=== PATIENT | male | born 1955 | race Caucasian/White ===

== ENCOUNTER → 2016-07-08 | Outpatient (CLI) | payer OTHER ==
[~2016-07-08] MED LIST: ASPI1TAB24 PO; ATEN25TA PO; BENA25CA4 PO; CELE-19 PO; GABA300C3 PO; LISI10TA4 PO; LOVA10TA PO; METF500T PO; OXYB5TA PO; [UNRECOGNIZED DRUG - CODE] PO
[2016-07-08 11:36] LABS: CALCIUM LEVEL 8.9 MG/DL (8.8-10.2); CREATININE FOR GFR 1.49 MG/DL (0.70-1.30); GLOMERULAR FILTRATION RATE 50.9 (>49); POTASSIUM SERUM 4.6 MEQ/L (3.5-5.1)
--- NOTE | 2016-07-10 00:43 | ECGEPIP ---
Stationary ECG Study [facility] Test Date: 2016-07-08 Pat Name: LUIS DANIEL AMARAL Department: Room: - Gender: M Waterproofer: BRIDGET : 1955 Requested By: Luis Daniel Sherman Order Number: [id number] Reading MD: Raul Vazquez Measurements Intervals Joseph Rate: 56 P: 71 VA: 165 QRS: -26 QRSD: 91 T: 9 QT: 429 QTc: 417 Interpretive Statements SINUS BRADYCARDIA LEFT AXIS DEVIATION Left anterior tyler-block No prior tracing Electronically Signed On 07-10-2016 0:43:10 EST by Raul Vazquez
== END ==
LOC: M LAB 10:16
PROVIDERS: ATTEND Orthopaedic Surgery
DX: E11.9 Type 2 diabetes mellitus without complications (principal)

== ENCOUNTER 2016-07-21 06:19 | Inpatient (IN) | payer OTHER ==
--- NOTE | 2016-07-13 12:36 | HPE ---
DATE OF ADMISSION: 07/21/2016 ATTENDING PHYSICIAN: Dr. Rod CHIEF COMPLAINT: Back pain, pain radiating down his right leg. HISTORY: This is a pleasant 60-year-old male patient with ongoing back pain from a work-related injury since 03/13/1989. He has continued to struggle with pain in his back. It goes down his right leg. It effects his activities of daily living and his rest. He has pain down his right leg if he sits too long, stands too long, he has to make frequent position changes. He has elected for surgery for his continued symptoms. He has consented for a right sided L5-S1 unilateral laminectomy and facetectomy as well as posterior fusion in situ L5-S1 using iliac crest graft. His MRI and x-ray consistent with foraminal stenosis, degenerative disc disease and hypertrophic changes to the facet joints. Medical optimization pending with Dr. Purcell. ALLERGIES: LIPITOR that causes muscle aches and LEVAQUIN that causes him to be nauseous and vomit. CURRENT MEDICATIONS INCLUDE: - Percocet 5/325 one to two tablets as needed for pain, that is prescribed for him for postoperative pain - gabapentin 300 mg one tablet three times a day - Celebrex 200 mg one tablet once a day - Ultram ER 100 mg one tablet as needed - atenolol 25 mg one tablet once per day - aspirin 81 mg one tablet once per day, discontinue that 5 days prior to surgery - metformin 500 mg one tablet twice a day - Benadryl 25 mg one tablet at nighttime as needed - oxybutynin he believes 5 mg as needed - lisinopril 10 mg one tablet once per day MEDICAL HISTORY INCLUDES: Hypertension. Elevated cholesterol. Lung difficulties. Non-insulin dependent diabetes. Lumbar degenerative disc disease. Low back pain. Right lower extremity radiculopathy. PAST SURGERIES INCLUDES: Right shoulder surgery and skin grafting of his lower extremities. FAMILY HISTORY: Noncontributory. SOCIAL HISTORY: He is a nonsmoker. He does not use alcohol. He is retired. REVIEW OF SYSTEMS: Denies fever or chills. Denies chest pain, shortness of breath or cough. Denies difficulty breathing. Denies abdominal pain. Denies nausea or vomiting. Notes persistent pain in his back down his right leg with weightbearing activities and activities of daily living. Denies change in his bowel or bladder habits. Denies loss of bowel or bladder control. Exam today reveals a well-nourished, well-developed alert male patient. He ambulates with a slow gait but it is not wide-based. He does not use assistive devices for ambulation today. There is some tenderness along the base of the lumbar spine without step-offs or deviations. Deep tendon reflexes are trace at the knees, absent at the ankles. Straight leg raise testing is irritable on the right, negative on the left. The skin around the back is intact. No erythema, edema or ecchymosis. His neck is supple without adenopathy or JVD. Lungs are clear to auscultation without rales or wheeze. Heart: Regular rate and rhythm. Abdomen: Bowel sounds are present. Height 5 feet 11, weight 233 pounds, temperature 97.6, blood pressure 140/98, pulse 64, respirations 12. LABORATORY DATA: Hemoglobin 14.6. IMPRESSION: Lumbar spinal stenosis. Lumbar degenerative disc disease. Right lower extremity radiculopathy, it is symptomatic. PLAN: L5-S1 unilateral laminectomy and facetectomy and posterior fusion in situ L5-S1.
[~2016-07-21] VITALS: Ht 182.9 cm; Wt 105.0 kg
[2016-07-21] MEDS ORDERED: PERCOCET 5MG/325MG TAB PO ONE (06:30)
[2016-07-21] MEDS ORDERED: LR 1,000 ML IV SCH ×2 (06:30→12:00)
[2016-07-21] MEDS ORDERED: D5W/LR 1,000 ML IV SCH (06:30)
[2016-07-21] MEDS ORDERED: PREGABALIN 75 MG CAP(LYRICA) PO ONE (06:30)
[2016-07-21] MEDS ORDERED: CelecoXIB (CeleBREX) 100 MG CAP PO ONE (06:30)
[2016-07-21] MEDS ORDERED: BUPIVACAINE/EPIN 0.25% 30 ML VIAL As Ordered ONE (08:09)
[2016-07-21] MEDS ORDERED: THROMBIN SOLN 20,000 UNITS KIT As Ordered ONE (08:09)
[2016-07-21] MEDS ORDERED: VANCOMYCIN HCL 500 MG/10 ML VIAL (J3370) As Ordered ONE (08:09)
[2016-07-21] MEDS ORDERED: BACITRACIN PWD 50,000 UNITS VIAL As Ordered ONE (08:10)
[2016-07-21] MEDS ORDERED: ROCURONIUM BROMIDE 50 MG/5 ML VIAL As Ordered ONE ×2 (08:11→09:50)
[2016-07-21] MEDS ORDERED: ONDANSETRON 4MG/2ML VIAL (J2405) As Ordered ONE (08:11)
[2016-07-21] MEDS ORDERED: LIDOCAINE 2% INJ 100 MG/5 ML SDV (FOR ANES.) As Ordered ONE (08:11)
[2016-07-21] MEDS ORDERED: PROPOFOL 200 MG/20 ML VIAL As Ordered ONE (08:11)
[2016-07-21] MEDS ORDERED: MIDAZOLAM INJ 2 MG/2 ML VIAL (J2250) As Ordered ONE (08:13)
[2016-07-21] MEDS ORDERED: fentaNYL 100 MCG/2 ML INJECTION (J3010) As Ordered ONE ×2 (08:13→09:52)
[2016-07-21] MEDS ORDERED: ceFAZolin 2 GM/D5W 50 ML IV BAG (J0690) As Ordered ONE (08:18)
[2016-07-21] MEDS ORDERED: GABAPENTIN 300 MG CAP PO SCH (09:00)
[2016-07-21] MEDS ORDERED: ePHEDrine SULFATE 25 MG/5 ML(5MG/ML) SYRINGE As Ordered ONE (09:01)
[2016-07-21] MEDS ORDERED: THROMBIN SOLN 20,000 UNITS KIT XX ONE (09:56)
[2016-07-21] MEDS ORDERED: BACITRACIN PWD 50,000 UNITS VIAL IR ONE (09:56)
[2016-07-21] MEDS ORDERED: VANCOMYCIN 500 MG/10 ML XX ONE (09:56)
[2016-07-21] MEDS ORDERED: BACITRACIN PWD 50,000 UNITS VIAL XX ONE (09:56)
[2016-07-21] MEDS ORDERED: BUPIVACAINE/EPIN 0.25% 30 ML VIAL XX ONE (09:56)
[2016-07-21] MEDS ORDERED: GLYCOPYRROLATE INJ 0.2 MG/ML 2 ML VIAL As Ordered ONE ×2 (10:57→10:58)
[2016-07-21] MEDS ORDERED: NEOSTIGMINE 1MG/ML 5 ML SYRINGE (J2710) As Ordered ONE (10:57)
[2016-07-21] MEDS ORDERED: dexameTHASONE 4 MG/ML 1ML VIAL (J1100) As Ordered ONE (11:09)
[2016-07-21] MEDS ORDERED: HYDROmorphone HCL 2 MG/ML 1ML VIAL (J1170) As Ordered ONE (11:16)
[2016-07-21] MEDS ORDERED: PROMETHAZINE INJ 25 MG/ML VIAL (J2550) IV PRN (11:45)
[2016-07-21] MEDS ORDERED: MEPERIDINE INJ 25 MG/ML VIAL (J2175) IV PRN (12:00)
[2016-07-21] MEDS ORDERED: fentaNYL 100 MCG/2 ML INJECTION (J3010) IV PRN (12:00)
[2016-07-21] MEDS ORDERED: METOCLOPRAMIDE INJ 10MG/2ML VIAL (J2765) IV PRN (12:00)
[2016-07-21] MEDS ORDERED: PERCOCET 5MG/325MG TAB PO PRN ×2 (12:00)
[2016-07-21] MEDS ORDERED: ONDANSETRON 4MG/2ML VIAL (J2405) IV PRN (12:00)
[2016-07-21] MEDS: HumaLOG INSULIN (NovoLOG) PER UNIT SC SCH ×2 (12:05→17:18)
[2016-07-21] MEDS ORDERED: HumaLOG INSULIN (NovoLOG) PER UNIT SC ONE (12:15)
--- NOTE | 2016-07-21 12:40 | REP ---
Partial lumbar spine series: Single cross-table lateral view. History: Facet arthropathy. Radiculopathy. Findings: A cross-table lateral portably obtained radiograph of the lumbar spine time-stamped at 9:38 a.m. demonstrates an intraoperative probe at the dorsal aspect of the spinal canal at the L5 vertebral body level. Signed by Jason Blandon MD 07/21/2016 04:31 P
[2016-07-21 13:30] VITALS: BP 143/78
--- NOTE | 2016-07-21 14:21 | RO ---
DATE OF PROCEDURE: 07/21/2016 PREPROCEDURE DIAGNOSES: Right lower extremity radiculopathy, facet arthropathy of L5-S1, spinal stenosis L5-S1 with instability. POSTPROCEDURE DIAGNOSES: Right lower extremity radiculopathy, facet arthropathy of L5-S1, spinal stenosis L5-S1 with instability. PROCEDURE PERFORMED: Right L5-S1 laminotomy, partial facetectomy, posterior L5-S1 intertransverse fusion in situ, harvest and placement of local autograft for spine surgery, harvest and placement of iliac crest autograft for spine surgery. SURGEON: Luis Daniel Rod MD LEAD MILITARY ANALYST: BRIAN Castaneda ANESTHESIA: General. ESTIMATED BLOOD LOSS: Less than 100 mL, replaced with crystalloid COMPLICATIONS: None. INDICATIONS: Pain radiating to the right lower extremity unresponsive to conservative management. MRI and plain film evidence of quite significant facet arthropathy at L5-S1, especially on the right side with right lateral recess facette subluxation and spinal stenosis. Consent reviewed in detail, including a isabela discussion of the pathology involved, the procedure proposed, alternatives, including doing nothing and risks, including, but not limited to, pain, failure, incomplete relief, need for more surgery, bleeding, blood loss, nerve injury and other problems. The patient wants to proceed. DESCRIPTION OF PROCEDURE: Identified in the holding area. Site and side verified, brought to the operating room. General endotracheal anesthesia was administered. He was positioned on the Walter frame in the prone position for exposure of the lumbar spine, knees slightly flexed. Next, I utilized 3.5 loupe magnification for the first portion of procedure. I stood on the patient's right and Mr. Stone on the patient's left so that we could alternate positions through the procedure. Next, the incision was outlined with a marking pen and Mr. Stone infiltrated 0.25% Marcaine with epinephrine over the midline incision based on the iliac crest palpation. The incision was made with a #10 blade, developed down through skin and subcuticular tissues to the posterior lumbar fascia. Crossing the fibers of the posterior lumbar fascia, it was appreciated at the L5 level, and the dissection continued reflecting the posterior lumbar fascia off the spinous process of L5, dissecting down the L5 lamina and exposing the top of S1 in the L5-[id number] complex. I utilized the high speed drill to create a 5 mm divot in the posterior lamina of L5 and then we obtained a cross-table lateral x-ray to verify correct level. Next, once this was accomplished, the dissection was developed superiorly for exposure of the superior aspect of the L5 lamina and laterally, Mr. Stone retracting with the Emma retractors over the transverse process of L5 and over the sacral ala. Next, once this was accomplished, the contralateral side, I resected soft tissue off of the midline over the lamina and over the transverse processes of L5 and sacral ala. Next, the patient's left side was packed with a lap pad. Next, at this point, my loupe magnification was removed, the operating microscope was brought in. I removed posterior lamina of L5 and part of the facet with the Leksell and this was retained for bone graft. Through the microscope, I visualized the laminotomy site and utilized the high-speed bur to implement the right unilateral laminotomy and partial facetectomy at L5-S1. Mr. Stone utilized oculars on the patient's left, I on the right. Bur millings were collected using the IndexTank trap and these were retained for bone graft. Next, the laminotomy continued superiorly to the bare area of L5, medially to the medial 30% of the L5-S1 facet complex and inferiorly to the bare area of S1. I elevated ligamentum flavum using a curved curette and removed it. Then, we decompressed the subarticular space using a curette, as well as #2 Kerrison. The facet was appreciated to be grossly hypertrophic and protruding into the canal and creating severe stenosis of the lateral recess on the right side. This was carefully removed with the bur, the curette, and #2 Kerrison, effectively decompressing the traversing S1 nerve root and the lateral recess. I also probed the neural foramina with Wojciech to ensure there was no debris in the neural foramina. Next, irrigation was accomplished. Thrombin Gelfoam utilized for hemostasis. Attention was turned to the bone graft. The operating microscope was removed from the field. Mr. Stone utilized Emma to expose the right posterior-superior iliac crest. Through a separate fascial incision, I opened over the posterior-superior iliac crest and removed the outer cortex using Leksell, which was retained for bone graft, then I utilized large Gage curettes to remove further morselized autograft bone. This was retained. The area was irrigated. I placed dry Gelfoam in the crest site. Next, the fascial tissues were reapproximated with interrupted stitch over the harvest site. Next, on the patient's right side, Mr. Stone utilized Emma to expose the transverse processes. I utilized the high-speed bur to decorticate the transverse process and sacral ala and pressed iliac crest bone graft, along with some local graft over this area. Thrombin Gelfoam and cottonoids were removed. Irrigation was accomplished. Small amount of vancomycin crystals were placed within this portion of the wound over the facet complex. Next, I utilized the Emma retractor on the patient's left side exposing the interlaminar space and intertransverse space. Mr. Stone then decorticated and placed the iliac crest bone graft and remaining local autograft in this portion of the wound. Next, again vancomycin crystals were placed in the portion of this wound. All retractors were removed. Posterior lumbar fascia was reapproximated with interrupted stitch, deep dermis with interrupted stitch and the skin dressing was applied. The patient was moved to the hospital bed, extubated, moved to the recovery room in good condition having tolerated the procedure well.
[2016-07-21 14:30] VITALS: BP 134/77
[2016-07-21] MEDS ORDERED: HYDROmorphone HCL 1 MG/ML SYRINGE (J1170) IV PRN ×2 (14:30)
[2016-07-21] MEDS: D5W/0.45% SODIUM CHLORIDE 1,000 ML IV SCH ×2 (15:13→21:45)
[2016-07-21] MEDS: DOCUSATE SODIUM 100 MG CAP PO SCH ×2 (15:13→20:13)
[2016-07-21] MEDS: ASCORBIC ACID 500 MG TAB PO SCH ×2 (15:13→20:13)
[2016-07-21] MEDS: ASPIRIN 81 MG ENTERIC TAB PO SCH (15:13)
[2016-07-21 15:30] VITALS: BP_SYST 133; BP_SYST 136; BP_DIAS 78; BP_DIAS 79
[2016-07-21 16:30] VITALS: BP 130/75
[2016-07-21] MEDS: GABAPENTIN 300 MG CAP PO SCH (20:13)
[2016-07-21] MEDS ORDERED: HumaLOG INSULIN (NovoLOG) PER UNIT SC SCH (21:00)
[2016-07-21 22:00] VITALS: BP 149/82
[2016-07-22] MEDS: PERCOCET 5MG/325MG TAB PO PRN ×2 (06:07→12:09)
[2016-07-22 07:09] LABS: CALCIUM LEVEL 8.4 MG/DL (8.8-10.2); CREATININE FOR GFR 2.03 MG/DL (0.70-1.30); GLOMERULAR FILTRATION RATE 35.6 (>49); MAGNESIUM LEVEL 1.6 MG/DL (1.8-2.4); POTASSIUM SERUM 4.8 MEQ/L (3.5-5.1)
[2016-07-22] MEDS: HumaLOG INSULIN (NovoLOG) PER UNIT SC SCH (07:30)
[2016-07-22] MEDS: D5W/0.45% SODIUM CHLORIDE 1,000 ML IV SCH (07:45)
[2016-07-22] MEDS ORDERED: metFORMIN (GLUCOPHAGE) 500 MG TAB PO SCH (08:00)
[2016-07-22] MEDS: GABAPENTIN 300 MG CAP PO SCH (08:08)
[2016-07-22] MEDS: DOCUSATE SODIUM 100 MG CAP PO SCH (08:09)
[2016-07-22] MEDS: ASPIRIN 81 MG ENTERIC TAB PO SCH (08:09)
[2016-07-22] MEDS: ASCORBIC ACID 500 MG TAB PO SCH (08:09)
[2016-07-22 08:10] VITALS: BP 149/82
[2016-07-22] MEDS ORDERED: ATENOLOL 12.5MG PER 1/2 TABLET PO SCH (09:00)
[2016-07-22] MEDS ORDERED: ATENOLOL 25 MG TAB PO SCH (09:00)
[2016-07-22] MEDS ORDERED: LISINOPRIL 10 MG TAB PO SCH (09:00)
[2016-07-22] MEDS ORDERED: MIRALAX *UNIT DOSE* 17GM PACKET PO SCH (09:00)
--- NOTE | 2016-07-27 10:07 | DSES ---
DATE OF ADMISSION: 07/21/2016 DATE OF DISCHARGE: 07/22/2016 ATTENDING PHYSICIAN: Dr. Rod ADMITTING DIAGNOSIS: Right lower extremity radiculopathy and facet arthropathy at L5-S1, as well as lumbar spinal stenosis L5-S1 with instability. OTHER DIAGNOSES: 1. Hypertension. 2. Elevated cholesterol. 3. Lung disease. 4. Aqi-ytkwile-nujfdtcit diabetes. DISCHARGE DIAGNOSIS: Right lower extremity radiculopathy and facet arthropathy at L5-S1, lumbar spinal stenosis L5-S1 with instability, status post right L5 laminotomy, partial facetectomy, intertransverse fusion in situ L5-S1. HISTORY: This is a pleasant 60-year-old male patient with progressively worsening back pain and pain down his right leg, all related to a work-related injury. He continued to have symptoms despite conservative management to include anti-inflammatories, rest, activity modification and physical therapy. Studies were consistent with the above diagnosis and he was admitted for decompression and fusion of L5-S1. OPERATION PERFORMED: Right L5-S1 laminotomy and partial facetectomy, as well as posterior intertransverse fusion in situ at L5-S1. HOSPITAL COURSE: The patient was admitted on day of surgery and underwent the above-listed procedure. The procedure was without complications and well tolerated by the patient. On day of discharge, he was doing well and weightbearing as tolerated on his lower extremities. He will use his back brace as directed. He will resume his preoperative medications and diet and he will use oral pain medications for pain control. He was given instructions to include, but not limited to wound monitoring, activity limitations and use of the brace. He will follow up in our office in 7-10 days for surgical followup. Please refer to the medical record for further details.
== END 2016-07-22 12:34 | disposition home or self-care (01) | DRG 304 ==
LOC: M OR 06:19 → M MS5PR 12:44
PROVIDERS: ADMIT Orthopaedic Surgery; ATTEND Orthopaedic Surgery
PROC: 0SB Lower Joints, Excision (ICD-10-PCS; 2016-07-21)
PROC: 0SG3071 Fusion of Lumbosacral Joint with Autologous Tissue Substitute, Posterior Approach, Posterior Column, Open Approach (ICD-10-PCS; 2016-07-21)
PROC: 01NB0ZZ Release Lumbar Nerve, Open Approach (ICD-10-PCS; principal; 2016-07-21 08:30)
DX: M48.06 Spinal stenosis, lumbar region (principal); I10 Essential (primary) hypertension; M51.16 Intervertebral disc disorders with radiculopathy, lumbar region; E78.00 Pure hypercholesterolemia, unspecified; E11.9 Type 2 diabetes mellitus without complications; R26.9 Unspecified abnormalities of gait and mobility; J98.4 Other disorders of lung; Z79.82 Long term (current) use of aspirin; Z79.84 Long term (current) use of oral hypoglycemic drugs; Z79.899 Other long term (current) drug therapy; Z79.891 Long term (current) use of opiate analgesic

== ENCOUNTER → 2020-12-28 | Outpatient (REF) | payer MEDICARE, OTHER ==
[~2020-12-28] MED LIST changes: +ASPI-161 PO; -ASPI1TAB24 PO; -CELE-19 PO; +CELE1CAP4 PO; +GABA-282 PO; -GABA300C3 PO; +LISI10TA22 PO; -LISI10TA4 PO; -METF500T PO; +METF500T13 PO; -OXYB5TA PO; +OXYB5TAB10 PO
== END ==
LOC: M LAB REF 17:50
PROVIDERS: ATTEND Internal Medicine Nephrology
DX: I12.9 Hypertensive chronic kidney disease with stage 1 through stage 4 chronic kidney disease, or unspecified chronic kidney disease (principal); N18.32 Chronic kidney disease, stage 3b

== ENCOUNTER → 2021-03-18 | Outpatient (REF) | payer MEDICARE | LOC: M LAB REF 12:58 | PROVIDERS: ATTEND Internal Medicine Nephrology | DX: E83.42 Hypomagnesemia (principal) ==

== ENCOUNTER → 2021-07-28 | Outpatient (REF) | payer MEDICARE | LOC: M LAB REF 16:47 | PROVIDERS: ATTEND Internal Medicine Nephrology | DX: N18.32 Chronic kidney disease, stage 3b (principal); E83.42 Hypomagnesemia ==